=== PATIENT | female | born 1955 | race Asian ===

== ENCOUNTER → 2017-05-14 | Outpatient (CLI) | payer BC | END | disposition home or self-care (01) | LOC: HKI 16:51 | DX: M75.92 Shoulder lesion, unspecified, left shoulder (principal); M75.102 Unspecified rotator cuff tear or rupture of left shoulder, not specified as traumatic | CPT/HCPCS: 73030; 73030-LT ==

== ENCOUNTER → 2018-03-08 | Outpatient (CLI) | payer BC | END | disposition home or self-care (01) | LOC: NUC 09:58 | DX: E05.90 Thyrotoxicosis, unspecified without thyrotoxic crisis or storm (principal) | CPT/HCPCS: 78014; A9516 ==